=== PATIENT | female | born 1985 | race African-American/Black ===

== ENCOUNTER 2016-05-26 09:43 | Emergency (ER) | payer OTHER ==
[~2016-05-26] VITALS: Ht 172.7 cm; Wt 113.5 kg
[~2016-05-26 09:43] MED LIST: ACET500C PO; METR500T10 PO; PRENTAB
[2016-05-26 12:20] VITALS: BP 116/56; PULSE 76; RESP 18; TEMP 97.9; O2SAT 99
[2016-05-26 12:37] VITALS: BP 119/76; PULSE 80; RESP 18; O2SAT 99
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
[2016-05-26 13:58] LABS: BLOOD, URINE NEG (NEG); GLUCOSE,URINE NEG (NEG); KETONE, URINE 10 mg/dL (NEG); MUCUS URINE FEW /lpf (OCC); NITRITE,URINE NEG (NEG); PH, URINE 5.5 (5.0-8.5); SQUAMOUS EPITHELIAL CELL URINE 1 /hpf (0-5); URINE COLOR YELLOW (YELLW/STRAW)
[2016-05-26 13:59] LABS: COMMENT (UR) CULT NOT INDICATED; CULTURE IF INDICATED CULT NOT INDICATED
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
[2016-05-26] MEDS ORDERED: EXTR500C PO (14:17)
[2016-05-26] MEDS ORDERED: ACETAMINOPHEN 500 MG CPLT PO ONE (14:30)
== END 2016-05-26 12:02 | disposition short-term general hospital (02) ==
LOC: HOBED 09:43
DX: O26.92 Pregnancy related conditions, unspecified, second trimester (principal); R51 Headache; M54.2 Cervicalgia; Z3A.25 25 weeks gestation of pregnancy; S80.01XA Contusion of right knee, initial encounter; S60.212A Contusion of left wrist, initial encounter; S60.211A Contusion of right wrist, initial encounter; V43.52XA Car driver injured in collision with other type car in traffic accident, initial encounter; Y93.89 Activity, other specified; Y92.410 Unspecified street and highway as the place of occurrence of the external cause
CPT/HCPCS: 70450; 76816; 76819; 81001

== ENCOUNTER 2016-09-12 14:49 | Inpatient (IN) | payer MEDICAID ==
[~2016-09-12] VITALS: Ht 175.3 cm; Wt 132.9 kg
[2016-09-12] VITALS (19 sets, daily range): BP systolic 107–124; BP diastolic 48–73; PULSE 72–90; RESP 16; TEMP 98–98.3
[~2016-09-12 14:49] MED LIST changes: -ACET500C PO; +EXTR500C PO; -METR500T10 PO
--- NOTE | 2016-09-12 16:20 | PD ---
HPI Chief Complaint consult: at due date, h/o previous c/s Date Seen: September 12, 2016 Travel History International Travel<30 Days: No Contact w/Intl Traveler<30Days: No Known Affected Area: No History of Present Illness HPI 31y/o at 40w who presented for evaluation of delivery plan due to h/o previous c/s for 2nd twin and the fact that she is at her due date. Pt denies vaginal bleeding or leakage of fluid with reports of active movements. Tracing noted to be Cat I initially and then with no accels and minimal variability. BPP obtained with score of 6/8, no points for FERNANDA with score of 4.3. care at [facility], care complicated by: 1. young multiparous 2. previous c/s LUST for 2nd twin due to non-engagement Labs: normal anatomy scan O+, AB neg, Rubella imm, RPR nr, HepBsAg neg, HIV neg, Gc/chl neg, Urine culture neg, GBS neg, normal 1 hr glucose per patient Para: 3 : 3 History Past Medical History Medical History: Denies Significant Hx Obstetric History Obstetric History 01/04/2007 FT girl 7lb5oz 11/06/2009 37w TIUP, 1:, 2: C/s for arrest of descent, 6lb3oz, 5lb4oz. Past Surgical History Narrative Surgical Previous c/s times 1 Family History Family History: Negative Social History Alcohol Use: No Tobacco Use: No Substance Abuse: No Allergies-Medications (Allergen,Severity, Reaction): Coded Allergies: No Known Allergies (Unverified , 05/26/16) Home Meds Active Scripts Acetaminophen (Acetaminophen Extra Strength)500 Mg Cap1,000 Mg PO Q6H PRN (PAIN SCALE 4 TO 10) #60 CAP Ref 1 Prov:Farideh Joya MD 05/26/16 Reported Medications Vit W/ Ferrous Fumara ( Formula 27-1 mg)1 Tab Tab 03/20/16 Review of Systems Except as stated in HPI: all other systems reviewed are Neg Physical Exam Narrative GENERAL: Well-nourished, well-developed patient. SKIN: Warm and dry. HEAD: Normocephalic and atraumatic. EYES: No scleral icterus. No injection or drainage. ENT: No nasal drainage noted. Mucous membranes pink. Airway patent. NECK: Supple, trachea midline. No JVD. CARDIOVASCULAR: Regular rate and rhythm without murmurs, gallops, or rubs. RESPIRATORY: Breath sounds equal bilaterally. No accessory muscle use. BREASTS: Bilateral exam showed no masses , no retractions, no nipple discharge. ABDOMEN/GI: Abdomen soft, non-tender, bowel sounds present, no rebound, no guarding Gravid to 40weeks size Fundal Height: 42 GENITOURINARY: Cervix: 2-3/50/-2/mid/soft Contractions: none FHT's: Category: 1 initially, then minimal variability with no decels/accels Cat 2 EXTREMITIES: No cyanosis or edema. BACK: Nontender without obvious deformity. No CVA tenderness. NEUROLOGICAL: Awake and alert. Motor and sensory grossly within normal limits. Five out of 5 muscle strength in all muscle groups. Normal speech. Data Data Vital Signs Reviewed: Yes Orders Us Ob Bpp Wo Nst W Repeat (09/12/16 ) MDM Interpretation(s) 31y/o at 40w with non-reactive NST and FERNANDA of 4. -vertex fetus Plan -Admit for delivery -oxytocin, AROM -epidural when desired -anticipate -discussed risks of TOLAC, pt agreeable to proceed Machelle Coffey MD September 12, 2016 16:20
--- NOTE | 2016-09-12 16:40 | HHI.HP ---
HPI Chief Complaint consult for induction of labor, at 40w of gestation with h/o previous c/s Travel History International Travel<30 Days: No Contact w/Intl Traveler<30Days: No Known Affected Area: No History of Present Illness HPI 31y/o at 40w who presented for evaluation of delivery plan due to h/o previous c/s for 2nd twin and the fact that she is at her due date. Pt denies vaginal bleeding or leakage of fluid with reports of active movements. Tracing noted to be Cat I initially and then with no accels and minimal variability. BPP obtained with score of 6/8, no points for FERNANDA with score of 4.3. care at [facility], care complicated by: 1. young multiparous 2. previous c/s LUST for 2nd twin due to non-engagement Labs: normal anatomy scan O+, AB neg, Rubella imm, RPR nr, HepBsAg neg, HIV neg, Gc/chl neg, Urine culture neg, GBS neg, normal 1 hr glucose per patient History Past Medical History Medical History: Denies Significant Hx Obstetric History Obstetric History 01/04/2007 FT girl 7lb5oz 11/06/2009 37w TIUP, 1:, 2: C/s for arrest of descent, 6lb3oz, 5lb4oz. Past Surgical History Narrative Surgical Previous c/s times 1 Family History Family History: Negative Social History Alcohol Use: No Tobacco Use: No Substance Abuse: No Allergies-Medications (Allergen,Severity, Reaction): Coded Allergies: No Known Allergies (Unverified , 05/26/16) Home Meds Active Scripts Acetaminophen (Acetaminophen Extra Strength)500 Mg Cap1,000 Mg PO Q6H PRN (PAIN SCALE 4 TO 10) #60 CAP Ref 1 Prov:Farideh Joya MD 05/26/16 Reported Medications Vit W/ Ferrous Fumara ( Formula 27-1 mg)1 Tab Tab 03/20/16 Review of Systems Except as stated in HPI: all other systems reviewed are Neg Physical Exam Narrative GENERAL: Well-nourished, well-developed patient. SKIN: Warm and dry. HEAD: Normocephalic and atraumatic. EYES: No scleral icterus. No injection or drainage. ENT: No nasal drainage noted. Mucous membranes pink. Airway patent. NECK: Supple, trachea midline. No JVD. CARDIOVASCULAR: Regular rate and rhythm without murmurs, gallops, or rubs. RESPIRATORY: Breath sounds equal bilaterally. No accessory muscle use. BREASTS: Bilateral exam showed no masses , no retractions, no nipple discharge. ABDOMEN/GI: Abdomen soft, non-tender, bowel sounds present, no rebound, no guarding Gravid to 40w GENITOURINARY: VE: 2-3/50/-2/mid/soft FHT's: Category: 1 initially, then cat2: minimal variability with no accels/accels Contractions: none EXTREMITIES: No cyanosis or edema. BACK: Nontender without obvious deformity. No CVA tenderness. NEUROLOGICAL: Awake and alert. Motor and sensory grossly within normal limits. Five out of 5 muscle strength in all muscle groups. Normal speech. Data Data Vital Signs Reviewed: Yes Orders Us Ob Bpp Wo Nst W Repeat (09/12/16 ) Ob (2e) Additional Admit Info (09/12/16 16:18) Assessment/Plan Problem List: (1) Non-reactive NST (non-stress test) (2) Oligohydramnios antepartum (3) Previous delivery affecting , antepartum Assessment and Plan 31y/o at 40w with non-reactive NST, oligohydraminos. -admit for induction of labor -anticipate -oxytocin and AROM -epidural when desired -discussed TOLAC in depth, pt agreeable. Machelle Coffey MD September 12, 2016 16:39
[2016-09-12] MEDS ORDERED: LACTATED RINGER'S 1000 ML INJ 1,000 ML IV PRN (16:41)
[2016-09-12] MEDS ORDERED: LIDOCAINE HCL 1% 50 ML VIAL I-DERMAL PRN (16:45)
[2016-09-12] MEDS ORDERED: LIDOCAINE HCL 1% 50 ML VIAL INFIL PRN (16:45)
[2016-09-12] MEDS ORDERED: MINERAL OIL 10 ML VIAL TOPICAL PRN (16:45)
[2016-09-12] MEDS ORDERED: CITRIC ACID-SODIUM CITRATE LIQ 30 ML UDC PO SCH (16:45)
[2016-09-12] MEDS ORDERED: SODIUM CHLORID 0.9% 500 ML INJ 500 ML IV PRN (16:45)
[2016-09-12] MEDS ORDERED: OXYTOCIN 30 UNITS-500ML PREMIX 500 ML IV ONE (16:45)
[2016-09-12] MEDS ORDERED: OXYTOCIN 30 UNITS-500ML PREMIX 500 ML IV SCH (17:00)
[2016-09-12] MEDS ORDERED: SODIUM CHLOR 0.9% 1000 ML INJ 1,000 ML IV PRN (17:01)
[2016-09-12 17:43] LABS: BACTERIA, URINE OCC /hpf; BLOOD, URINE NEG (NEG); COMMENT (UR) CULT NOT INDICATED; CULTURE IF INDICATED CULT NOT INDICATED; GLUCOSE,URINE NEG (NEG); KETONE, URINE NEG (NEG); MUCUS URINE FEW /lpf (OCC); NITRITE,URINE NEG (NEG); SQUAMOUS EPITHELIAL CELL URINE 1 /hpf (0-5); URINE COLOR YELLOW (YELLW/STRAW)
[2016-09-12] MEDS: LACTATED RINGER'S 1000 ML INJ 1,000 ML IV SCH (18:03)
[2016-09-12 18:53] LABS: AUTOMATED NEUTROPHIL # 6.9 TH/MM3 (1.8-7.7); BASOPHIL % 0.2 % (0.0-2.0); EOSINOPHIL # 0.1 TH/MM3 (0-0.4); EOSINOPHIL % 0.7 % (0.0-4.0); HEMATOCRIT 34.8 % (35.0-46.0); LYMPH % 18.3 % (9.0-44.0); LYMPHOCYTE # 1.7 TH/MM3 (1.0-4.8); MEAN CELL VOLUME 77.4 FL (80.0-100.0); MEAN CORPUSCULAR HEMOGLOBIN 24.5 PG (27.0-34.0); MEAN CORPUSCULAR HGB CONC 31.7 % (32.0-36.0); NEUT % 72.8 % (16.0-70.0); PLATELET COUNT 211 TH/MM3 (150-450); RED CELL DISTRIBUTION WIDTH 17.1 % (11.6-17.2); WHITE BLOOD COUNT 9.5 TH/MM3 (4.0-11.0)
[2016-09-12 18:57] LABS: HEMO FLAGS AUTO DIFF
[2016-09-12 19:46] LABS: SCAN/DIFF AUTO DIFF CONFIRMED
[2016-09-13] VITALS (32 sets, daily range): BP systolic 90–143; BP diastolic 51–94; PULSE 73–94; RESP 9–20; TEMP 97.2–98.3
--- NOTE | 2016-09-13 03:08 | PD.LABORPN ---
Subjective Subjective 31y/o at 40w, h/o previous LUST for arrest of descent of Twin B, with non-reactive NST and FERNANDA of 4. Oxytocin was started at 1800. Since admission the tracing has been Cat I with occasional periods of minimal variability. Objective Vital Signs Vital Signs Date Time Temp Pulse Resp B/P Pulse Ox O2 Delivery O2 Flow Rate FiO2 09/13/16 02:10 73 16 111/51 09/13/16 01:03 79 119/66 09/13/16 01:02 98.0 16 09/13/16 00:09 74 16 122/63 09/12/16 23:07 98.3 09/12/16 23:04 72 110/60 09/12/16 23:04 16 09/12/16 22:02 80 107/48 09/12/16 22:02 16 09/12/16 21:40 98.1 09/12/16 21:35 85 16 107/58 09/12/16 21:08 84 120/72 09/12/16 21:07 16 09/12/16 20:32 16 09/12/16 20:32 85 120/66 09/12/16 20:03 90 122/69 09/12/16 20:00 16 09/12/16 19:31 80 16 124/73 09/12/16 19:27 98.0 09/12/16 19:07 90 110/72 09/12/16 19:06 16 Objective Pelvic Exam: VE: 2-3/60/-1 Membranes: AROM now, minimal fluid, clear Uterine Contractions: q 1-2 minutes apart FHT's: Category: 1 Assessment/Plan Problem List: (1) Non-reactive NST (non-stress test) (2) Oligohydramnios antepartum (3) Previous delivery affecting , antepartum Assessment and Plan 31y/o at 40w, h/o previous LUST for arrest of descent of Twin B, with non-reactive NST and FERNANDA of 4. -Cat I tracing -AROM performed now, minimal fluid clear 31y/o at 40w, h/o previous LUST for arrest of descent of Twin B, with non-reactive NST and FERNANDA of 4. -Cat I tracing -AROM now, minimal fluid, clear -continue oxytocin -epidural when desired -anticipate Kalidas,Machelle MD September 13, 2016 03:08
[2016-09-13] MEDS: LACTATED RINGER'S 1000 ML INJ 1,000 ML IV SCH (06:11)
[2016-09-13] MEDS ORDERED: fentaNYL 2MCG-BUPIV 0.125% INJ 100 ML ONE (06:17)
[2016-09-13] MEDS ORDERED: ePHEDrine/NS 25 MG/5 ML SYR ONE (06:18)
--- NOTE | 2016-09-13 07:35 | PD.LABORPN ---
Subjective Subjective Pt resting comfortably with epidural. Pain is well controlled. Family present at bedside. No complaints at this time. Objective Vital Signs Vital Signs Date Time Temp Pulse Resp B/P Pulse Ox O2 Delivery O2 Flow Rate FiO2 09/13/16 06:46 83 143/94 09/13/16 06:45 91 09/13/16 06:42 18 09/13/16 06:40 93 09/13/16 06:38 87 134/72 09/13/16 06:35 94 09/13/16 06:30 18 09/13/16 06:30 87 09/13/16 06:15 18 09/13/16 06:11 81 133/69 09/13/16 05:01 76 129/81 09/13/16 05:00 16 09/13/16 05:00 98.3 09/13/16 03:28 81 120/60 09/13/16 03:27 97.8 16 09/13/16 02:10 73 16 111/51 09/13/16 01:03 79 119/66 09/13/16 01:02 98.0 16 09/13/16 00:09 74 16 122/63 Objective Pelvic Exam: Cervix: midposition, soft Dilatation: 8 Effacement: 100% Station: 0 Presentation: Vertex Membranes: ruptured Uterine Contractions: Q2 minutes FHT's: Category: 1 Baseline: 135 Reactive: + Variability: Moderate Decels: Early Assessment/Plan Problem List: (1) Non-reactive NST (non-stress test) (2) Oligohydramnios antepartum (3) Previous delivery affecting , antepartum Assessment and Plan 31yo at 40 weeks dilated to 8cm/100%/0, history of prior Lower uterine segment transverse due to non-engagement in twin Category 1 tracing, reassuring, early decels Vital signs stable Pt with epidural, pain currently well controlled Anticipate vaginal delivery wdw Itz Broussard MD September 13, 2016 07:35
[2016-09-13] MEDS ORDERED: ePHEDrine/NS 25 MG/5 ML SYR IV PRN (08:00)
[2016-09-13] MEDS ORDERED: NO SYSTEM NARCOTICS PRN (08:00)
[2016-09-13] MEDS ORDERED: DO NOT ADMINISTER ANTICOAGULANTS PRN (08:00)
[2016-09-13] MEDS ORDERED: fentaNYL 2MCG-BUPIV 0.125% 100 ML EPIDURAL SCH (08:00)
--- NOTE | 2016-09-13 09:56 | PD.OB.DELI ---
Delivery Date: September 13, 2016 Anesthesia: Epidural Episiotomy: None Vaginal Delivery: Normal Presentation: Occiput anterior Nuchal Cord: None Delayed cord clamping (45 sec): Yes Shoulder Dystocia: Suprapubic pressure given, [place] maneuver done Infant: Female One Minute : 8 Five Minute : 9 Weight: 3705g Placenta: Spontaneous delivery, Intact, 3 vessel cord Laceration: Vaginal laceration (periurethral lacerations; hemostasis achieved with direct pressure) Additional Information Supervised by Dr. Lynn. Assisted by Dr. Bret Peters. (Shyam Ivan MD R1) Collaborating MD Tyshawn Spontaneous vaginal delivery supervised over intact perineum. <300cc total blood loss (Nieves Lynn MD) Shyam Ivan MD R1 September 13, 2016 09:56 Nieves Lynn MD September 13, 2016 13:27
[2016-09-13] MEDS ORDERED: WITCH HAZEL 50%/GLYCERIN 12.5% 40 PAD JAR TOPICAL PRN (10:00)
[2016-09-13] MEDS ORDERED: SODIUM CHLORIDE 0.9% FLUSH 10 ML FLUSH IV FLUSH PRN (10:00)
[2016-09-13] MEDS ORDERED: ACETAMINOPHEN 325 MG TAB PO PRN (10:00)
[2016-09-13] MEDS ORDERED: oxyCODONE/ACETAMINOPHEN 5 MG/325 MG TAB PO PRN (10:00)
[2016-09-13] MEDS ORDERED: ONDANSETRON ODT 4 MG TAB PO PRN (10:00)
[2016-09-13] MEDS ORDERED: BENZOCAINE 20% TOPICAL SPRAY 60 ML CAN TOPICAL PRN (10:00)
[2016-09-13] MEDS ORDERED: ALUMINUM/MAGNESIUM/SIMETH 30 ML CUP PO PRN (10:00)
[2016-09-13] MEDS ORDERED: ZOLPIDEM TARTRATE 5 MG TAB PO PRN (10:00)
[2016-09-13] MEDS: IBUPROFEN 600 MG TAB PO PRN ×2 (15:25→21:52)
[2016-09-13] MEDS ORDERED: DIPHTH/TETANUS/ACEL PERTUSSIS (BOOSTER) 0.5 ML VIAL/PFS IM ONE (16:00)
[2016-09-13] MEDS ORDERED: MEASLES, MUMPS, RUBELLA VACCINE 0.5 ML VIAL SQ ONE (16:00)
[2016-09-13] MEDS: DOCUSATE SODIUM 50 MG/SENNA 8.6 MG TAB PO PRN (20:47)
[2016-09-13] MEDS: oxyCODONE/ACETAMINOPHEN 5 MG/325 MG TAB PO PRN (20:47)
[2016-09-13] MEDS ORDERED: SODIUM CHLORIDE 0.9% FLUSH 10 ML FLUSH IV FLUSH SCH (21:00)
--- NOTE | 2016-09-14 08:08 | HHI.OB ---
Subjective Post Day: 1 Remarks Pt seen and examined this morning. day # 1 AFVSS overnight. Decreased lochia. Denies dysuria. No breast tenderness. She is feeding the baby via breast. Appetite good. No nausea or vomiting. Patient has not yet had a bowel movement. +Flatus. Ambulating well. Denies calf pain or shortness of breath. Otherwise, she is doing well this morning and has no other concerns. (Itz Peters MD R2) Objective Vitals/I&O Vital Signs Date Time Temp Pulse Resp B/P Pulse Ox O2 Delivery O2 Flow Rate FiO2 09/13/16 12:00 18 09/13/16 12:00 97.2 93 9 121/69 09/13/16 08:40 93 09/13/16 08:35 87 09/13/16 08:31 84 90/54 09/13/16 08:30 86 09/13/16 08:27 18 09/13/16 08:25 86 09/13/16 08:20 84 09/13/16 08:15 83 09/13/16 08:15 79 109/73 Objective Remarks GENERAL: Well-nourished, well-developed patient. CARDIOVASCULAR: Regular rate and rhythm without murmurs, gallops, or rubs. RESPIRATORY: Breath sounds equal bilaterally. No accessory muscle use. ABDOMEN/GI: Abdomen soft, non-tender. Fundus: Firm, non-tender at umbilicus. GENITOURINARY: Light to moderate bleeding. EXTREMITIES: No cyanosis or edema, non-tender, without signs of DVT. Medications and IVs Current Medications Medications (Trade) Dose Ordered Sig/David Route Start Time Stop Time Status Last Admin (Pitocin 30 Units-NS 500 ml Premix) 500 ml @ 0 mls/hr TITRATE IV 09/12/16 17:00 09/12/16 18:08 (NS Flush) 2 ml BID IV FLUSH 09/13/16 21:00 (NS Flush) 2 ml UNSCH PRN IV FLUSH 09/13/16 10:00 (Tylenol) 650 mg Q4H PRN PO 09/13/16 10:00 (Motrin) 600 mg Q6H PRN PO 09/13/16 10:00 09/13/16 21:52 (Percocet 5-325 Mg) 1 tab Q4H PRN PO 09/13/16 10:00 09/13/16 20:47 (Percocet 5-325 Mg) 2 tab Q4H PRN PO 09/13/16 10:00 09/14/16 03:13 (Americaine 20% Top Spr) 1 spray Q4H PRN TOPICAL 09/13/16 10:00 09/13/16 20:47 (Tucks Pads) 1 applic QID PRN TOPICAL 09/13/16 10:00 (Anabelle-Colace) 2 tab Q12H PRN PO 09/13/16 10:00 09/13/16 20:47 (Ambien) 5 mg HS PRN PO 09/13/16 10:00 (Mag-Al Plus Susp Liq) 15 ml Q8H PRN PO 09/13/16 10:00 (Zofran Odt) 4 mg Q6H PRN PO 09/13/16 10:00 (Itz Peters MD R2) Assessment/Plan Problem List: (1) Non-reactive NST (non-stress test) (2) Oligohydramnios antepartum (3) Previous delivery affecting , antepartum Assessment and Plan 31 y/o female who is PPD# 1 s/p . -Continue routine care. -Percocet and Motrin PRN pain. -Encouraged OOB. Advised pelvic rest for 6 wks. -Re: ctrl, she would like the Nexplanon. -Anticipate discharge tomorrow. pilar Lynn MD (Itz Peters MD R2) Collaborating MD Comments Patient care assessed and I agree with care management. (Nieves Lynn MD) Itz Peters MD R2 September 14, 2016 08:08 Nieves Lynn MD September 14, 2016 09:50
[2016-09-14 08:26] VITALS: BP 104/75; PULSE 71; RESP 16; TEMP 98
[2016-09-14] MEDS: IBUPROFEN 600 MG TAB PO PRN (09:32)
[2016-09-14] MEDS: oxyCODONE/ACETAMINOPHEN 5 MG/325 MG TAB PO PRN (09:32)
[2016-09-14] MEDS: DOCUSATE SODIUM 50 MG/SENNA 8.6 MG TAB PO PRN (09:32)
[2016-09-14] MEDS ORDERED: ETON1IMP I-DERMAL (13:57)
--- NOTE | 2016-09-14 13:59 | HHI.DCPOC ---
Discharge Care Plan Diagnosis: (1) Normal Report Symptoms to Your Doctor -Temperature above 100.5 degrees -Redness or excessive or foul smelling drainage from vagina -Unusual pain or calf pain, shortness of breath, or chest pain -Increased vaginal bleeding -Painful or difficulty urinating -Feelings of extreme sadness or anxiety after 2 weeks Goals to Promote Your Health * To prevent worsening of your condition and complications, please take medications as prescribed and follow up with your doctor. * To maintain your health at the optimal level, please stay well hydrated, eat a balanced diet, and exercise regularly. Directions to Meet Your Goals Take your medications as prescribed Follow your dietary instruction Follow activity as directed Ensure plenty of rest for recovery Drink fluids for hydration Keep your appointments as scheduled Take your immunizations and boosters as scheduled If your symptoms worsen call your PCP, if no PCP go to Urgent Care Center or Emergency Room Smoking is Dangerous to Your Health. Avoid second hand smoke Call the 24-hour crisis hotline for domestic abuse at Shyam Ivan MD R1 September 14, 2016 13:59
[2016-09-14] MEDS ORDERED: BREAST PUMP1 MI1 (15:48)
== END 2016-09-14 17:19 | disposition home or self-care (01) | DRG 775 ==
LOC: HOBED 14:49 → H2EA 16:19 → H1EA 09-13 11:49
PROVIDERS: ADMIT Obstetrics & Gynecology; ATTEND Obstetrics & Gynecology
PROC: 3E033VJ Introduction of Other Hormone into Peripheral Vein, Percutaneous Approach (ICD-10-PCS; 2016-09-12)
PROC: 10E0XZZ Delivery of Products of Conception, External Approach (ICD-10-PCS; principal; 2016-09-13)
PROC: 10907ZC Drainage of Amniotic Fluid, Therapeutic from Products of Conception, Via Natural or Artificial Opening (ICD-10-PCS; 2016-09-13)
PROC: 00HU33Z Insertion of Infusion Device into Spinal Canal, Percutaneous Approach (ICD-10-PCS; 2016-09-13)
PROC: 3E0R3CZ (ICD-10-PCS; 2016-09-13)
DX: O41.03X0 Oligohydramnios, third trimester, not applicable or unspecified (principal); O71.4 Obstetric high vaginal laceration alone; O34.219 Maternal care for unspecified type scar from previous cesarean delivery; O66.0 Obstructed labor due to shoulder dystocia; O71.82 Other specified trauma to perineum and vulva; Z3A.40 40 weeks gestation of pregnancy; Z37.0 Single live birth
CPT/HCPCS: 59025; 76816; 76819; 81001; 85025; 86900; 86901; 90715; J2590; J3010; J7120